=== PATIENT | male | born 1935 | race Caucasian/White ===

== ENCOUNTER 2016-09-08 19:04 | Emergency (ER) | payer MEDICARE, BC ==
[2016-09-08 19:19] VITALS: BP 153/74
--- NOTE | 2016-09-08 19:24 | PHYS DOC ---
Adult General Chief Complaint Chief Complaint: HIP PAIN HPI HPI Patient is a 81 year old male who presents with left hip pain. patient has 1 year history of atraumatic hip pain worse today after getting out of the shower. Denies fall or other trauma. No recent increase in activity. He denies extremity numbness/weakness. Has had back pain in the past but none today. Denies fevers/chills, erythema, warmth, swelling. Has never seen a doctor for this problem before. occasionally takes aleve. Review of Systems Review of Systems Constitutional: Denies fever or chills HENT: Denies nasal congestion or sore throat Respiratory: Denies cough or shortness of breath Cardiovascular: Denies chest pain or edema GI: Denies abdominal pain, nausea, vomiting Musculoskeletal: Denies back pain, reports hip pain Integument: Denies rash Neurologic: Denies headache, focal weakness or sensory changes Physical Exam Physical Exam Constitutional: Well developed, well nourished, no acute distress, non-toxic appearance. HENT: Normocephalic, atraumatic, bilateral external ears normal, oropharynx moist, nose normal. Eyes: conjunctiva normal, no discharge. Cardiovascular: no edema. Lungs & Thorax: no respiratory distress. Abdomen: nondistended. Skin: Warm, dry, no erythema, no rash. Back: No spinal tenderness or step offs. Extremities: left hip no swelling/deformity, no erythema or warmth, no focal bony tenderness with palpation, mild pain with straight leg raise, normal ROM with flexion/extension, internal/external rotation, dp/pt 2+, sensation intact to foot. Neurologic: Alert and oriented X 3 EKG EKG [] Radiology/Procedures Radiology/Procedures XR L hip & pelvis: interpreted by me: no fracture or dislocation[] Course & Med Decision Making Course & Med Decision Making Pertinent Labs and Imaging studies reviewed. (See chart for details) The patient presents with acute on chronic atraumatic hip pain. No evidence of septic joint. No fracture or dislocation on x-ray. Recommend supportive care. Continue naproxen. Could also try Flexeril. Follow-up in the orthopedic clinic within one to 2 weeks. Return to the emergency department for signs of septic joint or otherwise worsening condition. Discharged home in stable condition. [] Dragon Disclaimer Dragon Disclaimer This chart was dictated in whole or in part using Voice Recognition software in a busy, high-work load, and often noisy Emergency Department environment. It may contain unintended and wholly unrecognized errors or omissions. Departure Departure: Impression: Primary Impression: Left hip pain Disposition: HOME, SELF-CARE Condition: STABLE Referrals: LETY PINEDA MD (PCP) [facility] Patient Instructions: Hip Pain Additional Instructions: You were seen in the emergency department today for hip pain. X-ray did not show any fracture or dislocation continue taking naproxen as needed for pain. Try Flexeril which may help with muscle spasm. Follow-up as soon as possible with orthopedic surgeon or with primary care doctor. You might benefit from physical therapy. Return to the emergency department for numbness or weakness in your leg, fever, hot/red/swollen hip, any otherwise worsening condition.. ANGIE OLMOS MD Sep 08, 2016 19:24
[2016-09-08] MEDS ORDERED: CYCL5TAB PO (20:37)
--- NOTE | 2016-09-09 09:09 | RAD ---
EXAM: Frontal pelvis with 2V left hip. HISTORY: Left hip pain. COMPARISON: None. FINDINGS: No fractures are identified. There is mildly decreased femoral head/neck offset anteriorly on the left. Joint spaces are preserved. At the right hip, there is some over coverage of the femoral head with a tiny femoral head osteophyte and mild joint space narrowing. There appear to be brachytherapy implants in the prostate. Degenerative disc disease is at least moderate within the lower lumbar spine. Stool in the right colon suggests constipation. IMPRESSION: 1. Correlate for mild femoroacetabular impingement anteriorly on the left. 2. Mild right hip osteoarthritis. 3. Correlate for constipation.
== END 2016-09-08 20:45 | disposition home or self-care (01) ==
LOC: ER 19:04
DX: G89.29 Other chronic pain (principal); M25.552 Pain in left hip
CPT/HCPCS: 73502; 99284

== ENCOUNTER 2016-09-11 01:50 | Observation (INO) | payer MEDICARE, BC ==
[~2016-09-11] VITALS: Ht 172.7 cm; Wt 90.7 kg
[~2016-09-11 01:50] MED LIST: CYCL5TAB PO
--- NOTE | 2016-09-11 02:00 | PHYS DOC ---
Past History Past Medical History: Cancer, High Cholesterol, Hypertension, Other Past Surgical History: Other Alcohol Use: None Drug Use: None Social History Narrative: lives alone Adult General HPI HPI Patient is a 81 year old male who presents with left hip pain. He was seen in the ED for the pain. No history of trauma or fall. Xray was performed and treated with cyclobenzaprine. He states it has not improved and he cannot get around at home at all. He called 911 due to the pain and inability to ambulate. The pain is centered in the left hip area; no radiation. Worse with ambulation and bending. No fever. No abdominal pain, no nausea or vomiting. No fever. He has a walker that he uses occasionally but since this pain started he has been using it all the time. He is followed by Dr Rodriguez. Review of Systems Review of Systems Constitutional: Denies fever or chills Eyes: Denies change in visual acuity, redness, or eye pain HENT: Denies nasal congestion or sore throat Respiratory: Denies cough or shortness of breath Cardiovascular: No chest pain or palpitations. GI: Denies abdominal pain, nausea, vomiting, bloody stools or diarrhea : Denies dysuria or hematuria Musculoskeletal: left hip pain; denies back pain however. Integument: Denies rash or skin lesions Neurologic: Denies headache, focal weakness or sensory changes Allergies Allergies Allergies Coded Allergies Type Severity Reaction Last Updated Verified morphine Allergy Unknown 09/08/16 Yes Physical Exam Physical Exam Constitutional: Well developed, well nourished, no acute distress, non-toxic appearance. In obvious pain with movement. HENT: Normocephalic, atraumatic, bilateral external ears normal, oropharynx moist, no oral exudates, nose normal. Eyes: PERRLA, EOMI, conjunctiva normal, no discharge. Neck: Normal range of motion, no tenderness, supple, no stridor. Cardiovascular:Heart rate regular rhythm, no murmur Lungs & Thorax: Bilateral breath sounds clear to auscultation Abdomen: Bowel sounds normal, soft, no tenderness, no masses, no pulsatile masses. Skin: Warm, dry, no erythema, no rash. Back: No midline tenderness, no CVA tenderness. Extremities: Pain with any movement to the left hip area. no cyanosis, no clubbing, ROM intact, no edema. Neurologic: Alert and oriented X 3, normal motor function, normal sensory function, no focal deficits noted. Psychologic: Affect normal, judgement normal, mood normal. Current Patient Data Vital Signs Vital Signs Date Time Temp Pulse Resp B/P (MAP) Pulse Ox O2 Delivery O2 Flow Rate FiO2 09/11/16 02:05 98.2 94 20 97 Room Air Lab Results Laboratory Tests Test 09/11/16 02:20 White Blood Count 9.5 x10^3/uL Red Blood Count 4.58 x10^6/uL Hemoglobin 13.8 g/dL Hematocrit 40.3 % Mean Corpuscular Volume 88 fL Mean Corpuscular Hemoglobin 30 pg Mean Corpuscular Hemoglobin Concent 34 g/dL Red Cell Distribution Width 14.3 % Platelet Count 248 x10^3/uL Neutrophils (%) (Auto) 67 % Lymphocytes (%) (Auto) 20 % Monocytes (%) (Auto) 9 % Eosinophils (%) (Auto) 3 % Basophils (%) (Auto) 1 % Neutrophils # (Auto) 6.4 x10^3uL Lymphocytes # (Auto) 1.8 x10^3/uL Monocytes # (Auto) 0.8 x10^3/uL Eosinophils # (Auto) 0.3 x10^3/uL Basophils # (Auto) 0.1 x10^3/uL Sodium Level 143 mmol/L Potassium Level 3.7 mmol/L Chloride Level 107 mmol/L Carbon Dioxide Level 30 mmol/L Anion Gap 6 Blood Urea Nitrogen 13 mg/dL Creatinine 1.0 mg/dL Estimated GFR (Cockcroft-Gault) 71.4 BUN/Creatinine Ratio 13 Glucose Level 112 mg/dL Calcium Level 8.8 mg/dL Total Bilirubin 0.5 mg/dL Aspartate Amino Transf (AST/SGOT) 14 U/L Alanine Aminotransferase (ALT/SGPT) 21 U/L Alkaline Phosphatase 115 U/L Total Protein 7.2 g/dL Albumin 3.5 g/dL Albumin/Globulin Ratio 0.9 Current Medications Medications (Trade) Dose Ordered Sig/Izzy Route PRN Reason Start Time Stop Time Status Last Admin Dose Admin Fentanyl Citrate (Fentanyl 2ml Vial) 50 mcg 1X ONCE IV 09/11/16 02:30 09/11/16 02:31 DC 09/11/16 02:30 Ondansetron HCl (Zofran) 4 mg 1X ONCE IV 09/11/16 02:30 09/11/16 02:31 DC 09/11/16 02:30 Radiology/Procedures Radiology/Procedures CT scan reports noted: [address] [address] IMAGING REPORT Signed PATIENT: MARISSA REDDING ACCOUNT: [id number] : 1935 LOCATION: ER AGE: 81 SEX: M EXAM STATUS: REG ER ORD. PHYSICIAN: ANIKET CRENSHAW MD REASON: left hip pain and left back PROCEDURE: CT LUMBAR SPINE WO CONTRAST PQRS Compliance Statement: One or more of the following individualized dose reduction techniques were utilized for this examination: 1. Automated exposure control 2. Adjustment of the mA and/or kV according to patient size 3. Use of iterative reconstruction technique CT LUMBAR SPINE WO CONTRAST, CT PELVIS WO CONTRAST Clinical Indication: 922169.001 Lower back pain x 4 days, worse tonight, no recent trauma. Comparison: CT abdomen and pelvis December 15, 2009. TECHNIQUE: Helical CT imaging of the pelvis and of the lumbar spine is performed without IV contrast. Findings: The hip joints are intact, mild DJD. No acute pelvic fracture. Sacroiliac joints are symmetric. No diastases of the symphysis pubis. Sacrum alignment is maintained. Diffuse demineralization. Atherosclerotic abdominal aorta. Probable right renal cyst. No acute abnormality of bowel. Urinary bladder is distended, otherwise normal. Fiducials in the prostate. No pelvic free fluid. No acute compression fracture in the lumbar spine. Alignment is maintained. There is vacuum disc phenomenon throughout the lumbar spine. There is disc space narrowing and degenerative endplate spurring most advanced at L2/L3 and L3/L4. Atherosclerotic abdominal aorta, no aneurysm. No hydronephrosis. L3/L4: There is broad-based posterior disc osteophyte complex and facet hypertrophy. Central canal stenosis is probably moderate. There is probably severe bilateral neural foraminal narrowing. L4/L5: Broad-based posterior disc osteophytic complex. Severe ligamentum flavum redundancy. Mild facet hypertrophy. Central canal stenosis is probably severe. Probably severe bilateral neural foraminal narrowing. IMPRESSION: 1. No acute pelvic fracture. No acute compression fracture in the lumbar spine. 2. Degenerative spondylosis of L3/L4 and L4/L5. Electronically signed by: Dejan Quispe MD (09/11/2016 3:19 AM) [facility] DICTATED AND SIGNED BY: DEJAN QUISPE MD DATE: 09/11/16311 CC: ANIKET CRENSHAW MD; LETY RODRIGUEZ MD ~ Course & Med Decision Making Course & Med Decision Making Pertinent Labs and Imaging studies reviewed. (See chart for details) Met patient upon arrival. He cannot even move from the EMS cart to the bed without pain. NVI distally however. Lab ordered; IV Fentanyl and zofran for pain. CT ordered to r/o occult hip fracture, pelvic fracture or lumbar injury with radicular pain. Son is at bedside. CT results back: no fracture but severe central canal stenosis at L4-5 and L3- 4. Spoke with Dr Smith (staffing consultant for Dr Rodriguez) for admission as patient CANNOT AMBULATE at home now due to the pain. Lab reviewed. Dragon Disclaimer Dragon Disclaimer This chart was dictated in whole or in part using Voice Recognition software in a busy, high-work load, and often noisy Emergency Department environment. It may contain unintended and wholly unrecognized errors or omissions. Departure Departure: Impression: Primary Impression: Hip pain, acute Additional Impressions: Left lumbar radiculopathy Intractable pain Disposition: ADMITTED INPATIENT Condition: GOOD Referrals: LETY RODRIGUEZ MD (PCP) Problem Qualifiers Primary Impression: Hip pain, acute Laterality: left Qualified Codes: M25.552 - Pain in left hip ANIKET CRENSHAW MD Sep 11, 2016 02:00
[2016-09-11] MEDS ORDERED: ONDANSETRON PF 4 MG/2 ML VIAL. IV ONE (02:30)
[2016-09-11] MEDS ORDERED: fentaNYL PF 100 MCG/2 ML VIAL IV ONE (02:30)
[2016-09-11 02:38] LABS: BASO # 0.1 x10^3/uL (0.0-0.2); BASO % 1 % (0-3); EOS # 0.3 x10^3/uL (0.0-0.7); EOS % 3 % (0-3); HEMATOCRIT 40.3 % (39.0-53.0); HEMOGLOBIN 13.8 g/dL (13.0-17.5); LYMPH # 1.8 x10^3/uL (1.0-4.8); LYMPH % 20 % (24-48); MEAN CORPUSCULAR HEMOGLOBIN 30 pg (25-35); MEAN CORPUSCULAR HGB CONC 34 g/dL (31-37); MEAN CORPUSCULAR VOLUME 88 fL (79-100); MONO # 0.8 x10^3/uL (0.0-1.1); MONO % 9 % (0-9); NEUT # 6.4 x10^3uL (1.8-7.7); NEUT % 67 % (31-73); PLATELET COUNT 248 x10^3/uL (140-400); RED BLOOD COUNT 4.58 x10^6/uL (4.30-5.70); RED CELL DISTRIBUTION WIDTH 14.3 % (11.5-14.5); WHITE BLOOD COUNT 9.5 x10^3/uL (4.0-11.0)
[2016-09-11 02:45] LABS: ALBUMIN 3.5 g/dL (3.4-5.0); ALBUMIN/GLOBULIN RATIO 0.9 (1.0-1.7); CALCIUM 8.8 mg/dL (8.5-10.1); GFR 71.4; POTASSIUM 3.7 mmol/L (3.5-5.1); TOTAL BILIRUBIN 0.5 mg/dL (0.2-1.0); TOTAL PROTEIN 7.2 g/dL (6.4-8.2)
--- NOTE | 2016-09-11 03:23 | RAD ---
RS Compliance Statement: One or more of the following individualized dose reduction techniques were utilized for this examination: 1. Automated exposure control 2. Adjustment of the mA and/or kV according to patient size 3. Use of iterative reconstruction technique CT LUMBAR SPINE WO CONTRAST, CT PELVIS WO CONTRAST Clinical Indication: 984448.001 Lower back pain x 4 days, worse tonight, no recent trauma. Comparison: CT abdomen and pelvis December 15, 2009. TECHNIQUE: Helical CT imaging of the pelvis and of the lumbar spine is performed without IV contrast. Findings: The hip joints are intact, mild DJD. No acute pelvic fracture. Sacroiliac joints are symmetric. No diastases of the symphysis pubis. Sacrum alignment is maintained. Diffuse demineralization. Atherosclerotic abdominal aorta. Probable right renal cyst. No acute abnormality of bowel. Urinary bladder is distended, otherwise normal. Fiducials in the prostate. No pelvic free fluid. No acute compression fracture in the lumbar spine. Alignment is maintained. There is vacuum disc phenomenon throughout the lumbar spine. There is disc space narrowing and degenerative endplate spurring most advanced at L2/L3 and L3/L4. Atherosclerotic abdominal aorta, no aneurysm. No hydronephrosis. L3/L4: There is broad-based posterior disc osteophyte complex and facet hypertrophy. Central canal stenosis is probably moderate. There is probably severe bilateral neural foraminal narrowing. L4/L5: Broad-based posterior disc osteophytic complex. Severe ligamentum flavum redundancy. Mild facet hypertrophy. Central canal stenosis is probably severe. Probably severe bilateral neural foraminal narrowing. IMPRESSION: 1. No acute pelvic fracture. No acute compression fracture in the lumbar spine. 2. Degenerative spondylosis of L3/L4 and L4/L5. Electronically signed by: Dejan Quispe MD (09/11/2016 3:19 AM) [facility]
[2016-09-11] MEDS ORDERED: fentaNYL PF 100 MCG/2 ML VIAL IV PRN (03:45)
[2016-09-11] MEDS ORDERED: ACETAMINOPHEN 325 MG TABLET PO PRN (03:45)
[2016-09-11] MEDS ORDERED: ONDANSETRON PF 4 MG/2 ML VIAL. IV PRN (03:45)
[2016-09-11 04:10] VITALS: BP 154/75
[2016-09-11] MEDS ORDERED: FLUT16SP21 NS (05:12)
[2016-09-11] MEDS ORDERED: TRAM50TA PO (05:12)
[2016-09-11] MEDS ORDERED: ATOR20TA58 PO (05:13)
[2016-09-11] MEDS ORDERED: OMEP40CA5 PO (05:14)
[2016-09-11] MEDS ORDERED: traMADol 50 MG TABLET PO PRN (05:15)
[2016-09-11] MEDS ORDERED: HYDR25TA9 PO (05:15)
[2016-09-11] MEDS ORDERED: CLOP75TA PO (05:16)
[2016-09-11] MEDS ORDERED: POLY255P PO (05:17)
[2016-09-11] MEDS ORDERED: ZOLP5TAB5 PO (05:17)
--- NOTE | 2016-09-11 05:20 | NUR ---
The patient, MARISSA REDDING, 81 y/o, M admitted by PARIS TAFOYA MD, Patient and family was given written information regarding hospital policies, unit procedures and contact persons. Patient's admitting DX is intractable pain. Patient states that his left hip and all the way up his left side has hurt for over a week. He came to the ER the other day and they prescribed him flexeril but it isn't working. Patient states he is having a very hard time getting around his house due to the pain. Patient states that when he is just laying down it doesn't hurt at all but when he moves it hurts very badly. He uses a walker at home and he states that he has had to use it more often due to the pain. Patient denies any injury. Call light within reach. Will continue to monitor. Valuables were checked and left with patient.
--- NOTE | 2016-09-11 05:38 | NUR ---
Nursing note: Patient was able to walk to the bathroom with a walker and gate belt with supervision only. He states that when the pain comes it is like a spasm, but he doesn't have it all the time. Patient instructed to always ask for help to the bathroom. Will continue to monitor.
[2016-09-11] MEDS ORDERED: PANTOPRAZOLE 40 MG TABLET. PO SCH (07:30)
[2016-09-11 08:30] VITALS: BP 147/71
[2016-09-11] MEDS ORDERED: hydroCHLOROthiazide 25 MG TABLET PO SCH (09:00)
[2016-09-11] MEDS ORDERED: POLYETHYLENE GLYCOL 3350 17 GM PACKET. PO PRN (09:00)
[2016-09-11] MEDS ORDERED: FLUTICASONE 50MCG/NASAL SPRAY 16GM BOTTLE. NS SCH (09:00)
[2016-09-11] MEDS ORDERED: CLOPIDOGREL BISULFATE 75 MG TABLET PO SCH (09:00)
[2016-09-11 11:10] VITALS: BP 149/84
[2016-09-11 15:15] VITALS: BP 162/62
--- NOTE | 2016-09-11 17:41 | NUR ---
Discharge Note: MARISSA REDDING Discharge instructions and discharge home medications reviewed with [facility] RN and a copy given. All questions have been answered and understanding verbalized. The following instructions and handouts were given: MEDICATIONS, LABS, IMAGING, DIET, ACTIVITY, AND FOLLOW UP INSTRUCTIONS Discontinued lines and drains: PERIPHERAL IV LEFT INTACT FOR USE AT [facility]. [facility] via EMS.
--- NOTE | 2016-09-11 20:03 | SSS ---
ADMIT DATE: 09/11/2016 HISTORY OF PRESENT ILLNESS: The patient is an 81-year-old male patient who came to the Emergency Room complaining of pain in the left hip. He apparently was seen for the same problem on 09/08/2016 with no history of trauma or fall. X-ray was performed, then he was given cyclobenzaprine. The patient stated that has not improved and he cannot get around at home at all. He in fact called 911 due to the pain and inability to ambulate. The pain is centered in the left hip area. No radiation. Worse with ambulation and bending. No fever, no abdominal pain, no nausea, no vomiting. He stated that he uses a walker occasionally, but since this pain started he has been using it all the time. According to him, the pain has been on and off since 12/2015. On questioning him further, the pain is mostly in the left lumbar area and radiating down. PAST MEDICAL HISTORY: Significant for hypertension and hyperlipidemia. He has also prostate cancer and colon cancer. PAST SURGICAL HISTORY: Significant for cholecystectomy, partial colectomy. His prostate cancer was treated with radiation seeds and 42 sessions of radiotherapy and then was treated with Lupron every 3 months for 3 years. The last injection was about 5 years ago. He was followed by Dr. Gao and also the Oncology Team at [facility]. He had tonsillectomy and colonoscopy. ALLERGIES: He is allergic to MORPHINE. MEDICATIONS: It is noteworthy that he has also had bilateral footdrop and has peripheral vascular disease for which he is on Plavix, although he has never had any arteriograms, angioplasty or bypass graft. He is currently on following medications: Atorvastatin calcium 20 mg at bedtime, Plavix 75 mg once a day, cyclobenzaprine 5 mg at bedtime, Flonase 1 spray to each nostril twice a day, hydrochlorothiazide 25 mg once a day, omeprazole 40 mg once a day, polyethylene glycol 17 grams daily, tramadol 50 mg every 6 hours and Ambien 5 mg at bedtime. FAMILY HISTORY: He has 1 older brother of complication of diabetes, 1 older sister of motor vehicle accident. His younger sister also was , but he does not know the cause of . His father at the age of 84 and mother at age of 33 because of heart problem. SOCIAL HISTORY: He is , lives alone with his dog. He has 2 sons. He does not smoke or drink alcohol. He worked in the [employer] office for 30 years. He is a [employer] . REVIEW OF SYSTEMS: The patient denied any blurring of vision, cataract, glaucoma or macular degeneration. Denied any earache, tinnitus or sensorineural deafness. Denied any nosebleeds, stuffy nose or postnasal drip. Denied any sore throat, sore tongue, toothache, hoarseness of voice or difficulty swallowing. Denied any nausea, vomiting, diarrhea or constipation. Denied any hematemesis, melena or hematochezia. Denied any dysuria, frequency or hematuria. Did complain of nocturia 3 times per night. Denied any chest pain, shortness of breath, orthopnea, or paroxysmal nocturnal dyspnea. Denied any cough, phlegm or hemoptysis. Denied any chills, rigors or fever. Denied any dizziness, lightheadedness, or vertigo. Did complain of pain and difficulty walking. PHYSICAL EXAMINATION: GENERAL: On examining him, he looked well and was clearly in no apparent distress, slightly pale, but no jaundice, cyanosis, or thyromegaly. No jugular venous distention. No limb edema. VITAL SIGNS: His heart rate was 84, blood pressure was 157/87, temperature was 97.7, respiratory rate was 20, and oxygen saturation was 96%. HEAD, EYES, EARS, NOSE, AND THROAT: Shows normocephalic, atraumatic. NECK: Supple. HEART: Showed normal first and second heart sounds with no gallop, rub or murmur. CHEST: Clear to auscultation. No crepitation or rhonchi. ABDOMEN: Distended, soft, nontender. No guarding or rigidity. No organomegaly. Hernial orifices intact. Bowel sounds normal. NEUROLOGIC: He was awake, alert, responding appropriately. Cranial nerves intact. EXTREMITIES: He moves extremities without difficulty. He has bilateral footdrop and has difficulty walking because the pain in his left lumbar area radiates down. LABORATORY DATA: While in the Emergency Room, he had lab work done, which showed a white cell count of 9500, hemoglobin 14, hematocrit 40, MCV 88 and platelet count 248,000 with normal manual differential. His serum sodium was 143, potassium 3.7, chloride 107, bicarbonate 30, anion gap of 6, BUN 13, creatinine 1, estimated GFR was 71 mL per minute. His glucose 112, calcium was 8.8. Total bilirubin 0.5. AST, ALT, alkaline phosphatase were normal. Total protein was 7.2, albumin was 3.5. He has had a CT scan of the pelvis, which showed the hip joints are intact. Mild degenerative joint disease. No acute pelvic fracture. Sacroiliac joints are symmetrical. No diastasis of symphysis pubis or sacrum. Alignment is maintained. Diffuse demineralization. He has atherosclerotic abdominal aorta, probable right renal cyst. No acute abnormality of the bowel. Urinary bladder is distended; otherwise, normal. in the prostate. No pelvic free fluid. No acute compression fracture in the lumbar spine. Alignment is maintained. There is vacuum disk phenomenon throughout the lumbar spine. There is disk space narrowing and degenerative endplate spurring most advanced at L2-L3 and L3-L4. He has arteriosclerotic abdominal aorta. No aneurysm. No hydronephrosis. At L3-L4, there is broad-based posterior disk osteophyte complex and facet hypertrophy, central canal stenosis, probably moderate. There is probably severe bilateral neural canal and neural foraminal narrowing. At L4-L5, broad-based posterior disk osteophytic complex, severe ligamentum flavum redundancy, mild facet hypertrophy, central canal stenosis, probably severe, and probably severe bilateral neural foraminal narrowing. IMPRESSION: The patient has no acute pelvic fracture. No acute compression fracture in the lumbar spine; however, has degenerative spondylolysis at L3-L4 and L4-L5. PLAN: Given the fact that he has this persistent pain that is interfering with his mobility and independence and that the pain has been worsening since 12/2015 and he has bilateral footdrop, my plan is to transfer him to [facility]. We will arrange for him to have an MRI of the lumbosacral spine and also consulting neurosurgeon to see if any surgical intervention needs to be done. I will hold his Plavix. PARIS TAFOYA MD DR: INÉS/riri JOB#: [id number] / [id number]
[2016-09-11] MEDS ORDERED: CYCLOBENZAPRINE 10 MG TABLET. PO SCH (21:00)
[2016-09-11] MEDS ORDERED: ATORVASTATIN CALCIUM 20 MG TABLET PO SCH (21:00)
== END 2016-09-11 17:45 | disposition short-term general hospital (02) ==
LOC: ER 01:50 → 1 SOUTH 03:35
PROVIDERS: ADMIT Internal Medicine; ATTEND Internal Medicine
DX: M47.26 Other spondylosis with radiculopathy, lumbar region (principal); I10 Essential (primary) hypertension; E78.00 Pure hypercholesterolemia, unspecified; E78.5 Hyperlipidemia, unspecified; Z85.038 Personal history of other malignant neoplasm of large intestine; Z85.46 Personal history of malignant neoplasm of prostate; Z92.3 Personal history of irradiation; Z83.3 Family history of diabetes mellitus
CPT/HCPCS: 36415; 72131; 72192; 80053; 85027; 96374; 96375; 96376; 97162; 99285; G0378; J2405; J3010; G0379

== ENCOUNTER 2016-10-15 13:56 | Emergency (ER) | payer MEDICARE, BC ==
[~2016-10-15] VITALS: Ht 172.7 cm; Wt 88.5 kg
[~2016-10-15 13:56] MED LIST changes: +ATOR20TA58 PO; +CLOP75TA PO; +FLUT16SP21 NS; +HYDR25TA9 PO; +OMEP40CA5 PO; +POLY255P PO; +TRAM50TA PO; +ZOLP5TAB5 PO
--- NOTE | 2016-10-15 14:59 | PHYS DOC ---
Past History Past Medical History: Cancer, High Cholesterol, Hypertension, Other Past Surgical History: Other Alcohol Use: None Drug Use: None Adult General Chief Complaint Chief Complaint: INSECT BITE HPI HPI 81-year-old male 2 days status post stenting proximal aspect of left index finger dorsum. Mild soreness and swelling immediately after. By patient's description that night he became much more swollen with mild warmth. His tetanus is not up-to-date. Swelling has persisted. He has not elevated at all or applied any ice and patient has not taken Benadryl or NSAIDs. He has no hives or diffuse rash. Findings are confined to the arm below the elbow only. No voice changes swallowing difficulty or breathing problems. Fevers chills sweats or shaking chills. Other than symptoms below the elbow patient is asymptomatic Review of Systems Review of Systems Constitutional: Denies fever or chills [] Eyes: Denies change in visual acuity, redness, or eye pain [] HENT: Denies nasal congestion or sore throat [] Respiratory: Denies cough or shortness of breath [] Cardiovascular: No additional information not addressed in HPI [] GI: Denies abdominal pain, nausea, vomiting, bloody stools or diarrhea [] : Denies dysuria or hematuria [] Musculoskeletal: Denies back pain or joint pain [] Integument: Denies rash or skin lesions [] Neurologic: Denies headache, focal weakness or sensory changes [] Endocrine: Denies polyuria or polydipsia [] Allergies Allergies Allergies Coded Allergies Type Severity Reaction Last Updated Verified morphine Allergy Unknown 09/08/16 Yes Physical Exam Physical Exam Well-appearing male appears much younger than his stated age as he is very vigorous and able bodied, soft tissue swelling and edema dorsum of left index finger as well as dorsum of left hand and forearm. Upper arm not involved. No significant warmth. Mild erythema however this states approximately. Small amount of ecchymosis at the bite site itself but no guillaume necrosis. No flexor T no synovitis. No fluctuance or crepitus. Compartments soft Constitutional: Well developed, well nourished, no acute distress, non-toxic appearance. [] HENT: Normocephalic, atraumatic, bilateral external ears normal, oropharynx moist, no oral exudates, nose normal. [] Eyes: PERRLA, EOMI, conjunctiva normal, no discharge. [] Neck: Normal range of motion, no tenderness, supple, no stridor. [] Cardiovascular:Heart rate regular rhythm, no murmur [] Lungs & Thorax: Bilateral breath sounds clear to auscultation [] Abdomen: Bowel sounds normal, soft, no tenderness, no masses, no pulsatile masses. [] Skin: Warm, dry, no erythema, no rash. [] Back: No tenderness, no CVA tenderness. [] Extremities: No tenderness, no cyanosis, no clubbing, ROM intact, [] Neurologic: Alert and oriented X 3, no focal deficits noted. [] Psychologic: Affect normal, judgement normal, mood normal. [] Current Patient Data Vital Signs Vital Signs Date Time Temp Pulse Resp B/P (MAP) Pulse Ox O2 Delivery O2 Flow Rate FiO2 10/15/16 14:19 98.5 87 22 97 Room Air EKG EKG [] Radiology/Procedures Radiology/Procedures [] Course & Med Decision Making Course & Med Decision Making Pertinent Labs and Imaging studies reviewed. (See chart for details) [] Dragon Disclaimer Dragon Disclaimer This chart was dictated in whole or in part using Voice Recognition software in a busy, high-work load, and often noisy Emergency Department environment. It may contain unintended and wholly unrecognized errors or omissions. Departure Departure: Impression: Primary Impression: Local reaction to insect sting Additional Impression: Edema of upper extremity Disposition: 01 HOME, SELF-CARE Condition: STABLE Referrals: CHARISMA MOORE MD (PCP) Patient Instructions: Bee, Wasp, or Hornet Sting Additional Instructions: Your wasp sting of your left hand has caused a local reaction of swelling and discomfort in your left hand and forearm. Her tetanus shot has been updated. This includes pertussis whooping cough vaccination. As we discussed there is no clinical difference between the signs of inflammation in the signs of infection so days after a your wasp envenomation, it is impossible to definitively determine that there is not an early skin infection associated with your swelling redness and discomfort. Based on this as we discussed I have written your prescription for Keflex this is an antibiotic. Be sure to finish it as prescribed. Take ibuprofen 800 mg every 6 hours elevate your arm whenever possible and apply ice if you find it helps your comfort level. Follow-up with your doctor tomorrow and return immediately for new severe worsening symptoms specifically for sitting pain in your hand or severe tightness in the forearm causing progressive pain or for fevers. Scripts Cephalexin (KEFLEX) 500 Mg Capsule 500 MG PO QID for 10 Days, #40 CAP Prov: SHERRY LUZ MD 10/15/16 Problem Qualifiers SHERRY LUZ MD Oct 15, 2016 14:59
[2016-10-15] MEDS ORDERED: DIPHTH,PERTUSS(ACELL),TET TOX 0.5 ML DISP.SYRIN. VAX IM ONE (15:00)
[2016-10-15] MEDS ORDERED: DEXAMETHASONE SOD PHOS 10 MG/ML VIAL IV ONE (15:00)
[2016-10-15] MEDS ORDERED: CEPHALEXIN 250 MG CAPSULE PO ONE (15:00)
[2016-10-15] MEDS ORDERED: KETOROLAC 60 MG/2 ML VIAL. IM ONE (15:15)
[2016-10-15] MEDS ORDERED: CEPH-264 PO (16:34)
[2016-10-15 16:44] VITALS: BP 148/78
== END 2016-10-15 16:47 | disposition home or self-care (01) ==
LOC: ER 13:56
DX: L08.89 Other specified local infections of the skin and subcutaneous tissue (principal); R60.1 Generalized edema; I10 Essential (primary) hypertension; E78.00 Pure hypercholesterolemia, unspecified; Z88.5 Allergy status to narcotic agent; W57.XXXA Bitten or stung by nonvenomous insect and other nonvenomous arthropods, initial encounter; Y93.89 Activity, other specified; Y99.8 Other external cause status; Y92.89 Other specified places as the place of occurrence of the external cause
CPT/HCPCS: 90471; 90715; 96372; 96374; 99284; J1100; J1885

== ENCOUNTER → 2017-01-06 | Outpatient (CLI) | payer MEDICARE, BC ==
[~2017-01-06] MED LIST changes: +BUPIVACAINE MPF 0.25% 10 ML VIAL. ONE; +CEPH-264 PO; +DEXAMETHASONE SOD PHOS 4 MG/ML VIAL ONE; +IOHEXOL 300 MG/ML 50 ML VIAL. ONE; +LIDOCAINE 1% PF 30 ML VIAL. ONE
== END ==
LOC: SURG 11:01
PROVIDERS: ATTEND Anesthesiology Pain Medicine
DX: M51.16 Intervertebral disc disorders with radiculopathy, lumbar region (principal); I10 Essential (primary) hypertension; E78.5 Hyperlipidemia, unspecified; M19.90 Unspecified osteoarthritis, unspecified site; E78.00 Pure hypercholesterolemia, unspecified; Z88.5 Allergy status to narcotic agent; Z79.899 Other long term (current) drug therapy; Z98.890 Other specified postprocedural states; Z85.038 Personal history of other malignant neoplasm of large intestine; Z83.3 Family history of diabetes mellitus
CPT/HCPCS: 64483; 64484; J1100; J2001; J3490; Q9967

== ENCOUNTER → 2017-02-03 | Outpatient (CLI) | payer MEDICARE, BC ==
[~2017-02-03] MED LIST changes: +0.9 % SODIUM CHLORIDE 10 ML VIAL ONE; -BUPIVACAINE MPF 0.25% 10 ML VIAL. ONE; -DEXAMETHASONE SOD PHOS 4 MG/ML VIAL ONE; +methylPREDNISolone ACETATE 80 MG/ML VIAL. ONE
== END | disposition home or self-care (01) ==
LOC: SURG 08:57
PROVIDERS: ATTEND Anesthesiology Pain Medicine
DX: M54.16 Radiculopathy, lumbar region (principal); F41.9 Anxiety disorder, unspecified; K21.9 Gastro-esophageal reflux disease without esophagitis
CPT/HCPCS: 62323; J1040; J2001; Q9967

== ENCOUNTER → 2017-03-31 | Outpatient (CLI) | payer MEDICARE, BC | END | disposition home or self-care (01) | LOC: SURG 11:42 | PROVIDERS: ATTEND Anesthesiology Pain Medicine | DX: M54.16 Radiculopathy, lumbar region (principal); M19.90 Unspecified osteoarthritis, unspecified site; E78.00 Pure hypercholesterolemia, unspecified; K21.9 Gastro-esophageal reflux disease without esophagitis; E66.9 Obesity, unspecified; Z88.6 Allergy status to analgesic agent; Z88.2 Allergy status to sulfonamides | CPT/HCPCS: 62323; 99213; J1040; J2001; Q9967 ==

== ENCOUNTER → 2017-04-28 | Outpatient (CLI) | payer MEDICARE, BC ==
[~2017-04-28] MED LIST changes: -0.9 % SODIUM CHLORIDE 10 ML VIAL ONE; +BUPIVACAINE MPF 0.5% 30 ML VIAL. ONE; -IOHEXOL 300 MG/ML 50 ML VIAL. ONE; -methylPREDNISolone ACETATE 80 MG/ML VIAL. ONE
== END | disposition home or self-care (01) ==
LOC: SURG 10:30
PROVIDERS: ATTEND Anesthesiology Pain Medicine
DX: M47.816 Spondylosis without myelopathy or radiculopathy, lumbar region (principal); M19.90 Unspecified osteoarthritis, unspecified site; Z88.2 Allergy status to sulfonamides; Z88.8 Allergy status to other drugs, medicaments and biological substances; Z79.899 Other long term (current) drug therapy
CPT/HCPCS: 64493; 64494; J2001; J3490

== ENCOUNTER → 2017-06-02 | Outpatient (CLI) | payer MEDICARE, BC | END | disposition home or self-care (01) | LOC: SURG 10:44 | PROVIDERS: ATTEND Anesthesiology Pain Medicine | DX: M47.816 Spondylosis without myelopathy or radiculopathy, lumbar region (principal); Z88.2 Allergy status to sulfonamides; Z88.6 Allergy status to analgesic agent; Z88.8 Allergy status to other drugs, medicaments and biological substances; M19.90 Unspecified osteoarthritis, unspecified site | CPT/HCPCS: 64493; 64494; J2001; J3490; 64495 ==

== ENCOUNTER → 2018-08-18 | Outpatient (CLI) | payer MEDICARE, BC ==
[~2018-08-18] MED LIST changes: +0.9 % SODIUM CHLORIDE 10 ML VIAL ONE; -BUPIVACAINE MPF 0.5% 30 ML VIAL. ONE; +HYDR-2145 PO; -HYDR25TA9 PO; +IOHEXOL 300 MG/ML 50 ML VIAL. ONE; -POLY255P PO; +POLY255P11 PO; +methylPREDNISolone ACETATE 80 MG/ML VIAL. ONE
== END ==
LOC: SURG 09:29
PROVIDERS: ATTEND Anesthesiology Pain Medicine
DX: M54.16 Radiculopathy, lumbar region (principal); Z88.6 Allergy status to analgesic agent; Z88.1 Allergy status to other antibiotic agents; Z88.5 Allergy status to narcotic agent
CPT/HCPCS: 62323; J1040; J2001; Q9967

== ENCOUNTER → 2018-10-13 | Outpatient (CLI) | payer MEDICARE, BC ==
[~2018-10-13] MED LIST changes: +GABA-586 PO; +HYDR-2155 PO; +NAPR220C4 PO
--- NOTE | 2018-10-13 10:13 | NUR ---
PT HASN'T TAKEN ANY ABX FOR OVER FOUR WEEKS
[2018-10-13 10:54] VITALS: BP 151/79
== END | disposition home or self-care (01) ==
LOC: SURG 09:40
PROVIDERS: ATTEND Anesthesiology Pain Medicine
DX: M54.16 Radiculopathy, lumbar region (principal); K21.9 Gastro-esophageal reflux disease without esophagitis; E78.00 Pure hypercholesterolemia, unspecified; Z79.899 Other long term (current) drug therapy; Z98.890 Other specified postprocedural states
CPT/HCPCS: 62323; J1040; J2001; Q9967; 72275

== ENCOUNTER → 2018-12-21 | Outpatient (CLI) | payer MEDICARE, BC ==
[~2018-12-21] MED LIST changes: -0.9 % SODIUM CHLORIDE 10 ML VIAL ONE; -IOHEXOL 300 MG/ML 50 ML VIAL. ONE; -LIDOCAINE 1% PF 30 ML VIAL. ONE; +OMEP40CA45 PO; -OMEP40CA5 PO; -methylPREDNISolone ACETATE 80 MG/ML VIAL. ONE
[2018-12-21 10:09] VITALS: BP 172/90
== END | disposition home or self-care (01) ==
LOC: SURG 09:47
PROVIDERS: ATTEND Anesthesiology Pain Medicine
DX: M47.816 Spondylosis without myelopathy or radiculopathy, lumbar region (principal); G89.4 Chronic pain syndrome; Z79.84 Long term (current) use of oral hypoglycemic drugs; Z79.891 Long term (current) use of opiate analgesic; Z85.038 Personal history of other malignant neoplasm of large intestine
CPT/HCPCS: 99213

== ENCOUNTER → 2019-01-24 | Outpatient (CLI) | payer MEDICARE, BC ==
[~2019-01-24] MED LIST changes: +0.9 % SODIUM CHLORIDE 10 ML VIAL ONE; +IOHEXOL 300 MG/ML 50 ML VIAL. ONE; +LIDOCAINE 1% PF 30 ML VIAL. ONE; +methylPREDNISolone ACETATE 80 MG/ML VIAL. ONE
[2019-01-24 10:50] VITALS: BP 101/69
== END ==
LOC: SURG 09:40
PROVIDERS: ATTEND Anesthesiology Pain Medicine
DX: M54.16 Radiculopathy, lumbar region (principal)
CPT/HCPCS: 62323; J1040; J2001; Q9967

== ENCOUNTER 2019-04-14 17:11 | Emergency (ER) | payer MEDICARE, BC ==
[~2019-04-14] VITALS: Ht 172.7 cm; Wt 95.5 kg
[~2019-04-14 17:11] MED LIST changes: -0.9 % SODIUM CHLORIDE 10 ML VIAL ONE; -IOHEXOL 300 MG/ML 50 ML VIAL. ONE; -LIDOCAINE 1% PF 30 ML VIAL. ONE; -methylPREDNISolone ACETATE 80 MG/ML VIAL. ONE
[2019-04-14 17:34] VITALS: BP 149/82
[2019-04-14] MEDS ORDERED: methylPREDNISolone SOD SUCC PF 125 MG/2 ML VIAL. IM ONE (17:45)
[2019-04-14] MEDS ORDERED: diphenhydrAMINE 50 MG/ML VIAL IM ONE (17:45)
[2019-04-14] MEDS ORDERED: ONDANSETRON ODT 4 MG TAB.RAPDIS ONE (17:59)
--- NOTE | 2019-04-14 18:09 | PHYS DOC ---
Past History Past Medical History: Cancer, High Cholesterol, Hypertension, Other Past Surgical History: Other Alcohol Use: None Drug Use: None Adult General Chief Complaint Chief Complaint: ALLERGIC REACTION HPI HPI Patient is a 84-year-old male who presents with report of possible allergic reaction to new medication. Patient states that his doctor had just changed him from Flomax to torsemide to help get some of the fluid off of his legs. Patient states that after taking his first pill, he noticed swelling around his anterior neck and chin area as well as swelling on his tongue and some ulceration that developed today. He rates the pain in his tongue is mild. He denies any shortness of breath. He states that some of the swelling has early gone down.[] Review of Systems Review of Systems Constitutional: Denies fever or chills [] HENT: Positive tongue swelling and ulceration[] Respiratory: Denies cough or shortness of breath [] Cardiovascular: No additional information not addressed in HPI [] Integument: Denies rash or skin lesions [] Neurologic: Denies headache, focal weakness or sensory changes [] Current Medications Current Medications Current Medications Medications (Trade) Dose Ordered Sig/Izzy Start Time Stop Time Status Last Admin Dose Admin Diphenhydramine HCl (Benadryl) 25 mg 1X ONCE 04/14/19 17:45 04/14/19 17:46 UNV Methylprednisolone Sodium Succinate (SOLU-Medrol 125MG VIAL) 125 mg 1X ONCE 04/14/19 17:45 04/14/19 17:46 UNV Ondansetron HCl (Zofran Odt) 4 mg STK-MED ONCE 04/14/19 17:59 04/14/19 17:59 DC Allergies Allergies Allergies Coded Allergies Type Severity Reaction Last Updated Verified Sulfa (Sulfonamide Antibiotics) Allergy Intermediate Swelling 01/24/19 Yes morphine Allergy Unknown 01/24/19 Yes Physical Exam Physical Exam Constitutional: Well developed, well nourished, no acute distress, non-toxic appearance. [] HENT: Normocephalic, atraumatic, bilateral external ears normal, oropharynx moist, with what appears to be mild tongue swelling and ulceration along the left lateral aspect of the tongue. [] Eyes: PERRLA, EOMI, conjunctiva normal, no discharge. [] Neck: Normal range of motion, no tenderness, supple, with mild soft tissue sw elling anteriorly. [] Cardiovascular: Regular rate and rhythm[] Lungs & Thorax: Bilateral breath sounds clear to auscultation [] Skin: Warm, dry, no erythema, no rash. [] Current Patient Data Vital Signs Vital Signs Date Time Temp Pulse Resp B/P (MAP) Pulse Ox O2 Delivery O2 Flow Rate FiO2 04/14/19 17:34 94 18 149/82 (104) 97 EKG EKG [] Radiology/Procedures Radiology/Procedures [] Course & Med Decision Making Course & Med Decision Making Pertinent Labs and Imaging studies reviewed. (See chart for details) [] Dragon Disclaimer Dragon Disclaimer This electronic medical record was generated, in whole or in part, using a voice recognition dictation system. Departure Departure: Impression: Primary Impression: Medication reaction Disposition: HOME, SELF-CARE Condition: STABLE Referrals: CHARISMA MOORE MD (PCP) Patient Instructions: Drug Allergy Additional Instructions: Hold torsemide for now until you've follow-up with your primary care provider for further advice. Problem Qualifiers Primary Impression: Medication reaction Encounter type: initial encounter Qualified Codes: T50.905A - Adverse effect of unspecified drugs, medicaments and biological substances, initial encounter SUNITA GUERRERO Jr. DO Apr 14, 2019 18:09
== END 2019-04-14 18:11 | disposition home or self-care (01) ==
LOC: ER 17:11
DX: R22.1 Localized swelling, mass and lump, neck (principal); K14.6 Glossodynia; T50.1X5A Adverse effect of loop [high-ceiling] diuretics, initial encounter; E78.00 Pure hypercholesterolemia, unspecified; I10 Essential (primary) hypertension; Z88.2 Allergy status to sulfonamides; Z88.5 Allergy status to narcotic agent; Y92.89 Other specified places as the place of occurrence of the external cause
CPT/HCPCS: 99281

== ENCOUNTER → 2019-12-05 | Outpatient (CLI) | payer MEDICARE, BC ==
[~2019-12-05] MED LIST changes: +BUPIVACAINE MPF 0.25% 10 ML VIAL. ONE; +LIDOCAINE 1% PF 30 ML VIAL. ONE
[2019-12-05 12:24] VITALS: BP 147/81
== END | disposition home or self-care (01) ==
LOC: SURG 11:27
PROVIDERS: ATTEND Anesthesiology
DX: M47.816 Spondylosis without myelopathy or radiculopathy, lumbar region (principal); M48.061 Spinal stenosis, lumbar region without neurogenic claudication; K21.9 Gastro-esophageal reflux disease without esophagitis; F32.9 Major depressive disorder, single episode, unspecified; C22.0 Liver cell carcinoma; Z98.890 Other specified postprocedural states; Z88.6 Allergy status to analgesic agent; Z79.899 Other long term (current) drug therapy; Z88.1 Allergy status to other antibiotic agents; Z88.8 Allergy status to other drugs, medicaments and biological substances
CPT/HCPCS: 64493; 64494; J2001; J3490

== ENCOUNTER → 2019-12-19 | Outpatient (CLI) | payer MEDICARE, BC ==
[2019-12-19 11:17] VITALS: BP 152/87
== END | disposition home or self-care (01) ==
LOC: SURG 10:05
PROVIDERS: ATTEND Anesthesiology
DX: M47.816 Spondylosis without myelopathy or radiculopathy, lumbar region (principal); Z98.890 Other specified postprocedural states; Z88.1 Allergy status to other antibiotic agents; Z88.6 Allergy status to analgesic agent; Z88.8 Allergy status to other drugs, medicaments and biological substances
CPT/HCPCS: 64493; 64494; J2001; J3490

== ENCOUNTER → 2020-01-02 | Outpatient (CLI) | payer MEDICARE, BC ==
[~2020-01-02] MED LIST changes: -BUPIVACAINE MPF 0.25% 10 ML VIAL. ONE; -LIDOCAINE 1% PF 30 ML VIAL. ONE
[2020-01-02 14:45] VITALS: BP 156/95
== END ==
LOC: SURG 14:35
PROVIDERS: ATTEND Anesthesiology
DX: M47.26 Other spondylosis with radiculopathy, lumbar region (principal); M48.061 Spinal stenosis, lumbar region without neurogenic claudication; F32.9 Major depressive disorder, single episode, unspecified; K21.9 Gastro-esophageal reflux disease without esophagitis; Z79.899 Other long term (current) drug therapy; Z88.2 Allergy status to sulfonamides; Z88.6 Allergy status to analgesic agent; Z88.1 Allergy status to other antibiotic agents; Z88.5 Allergy status to narcotic agent; Z88.8 Allergy status to other drugs, medicaments and biological substances; I10 Essential (primary) hypertension; E78.00 Pure hypercholesterolemia, unspecified; Z98.890 Other specified postprocedural states; Z79.84 Long term (current) use of oral hypoglycemic drugs; Z83.3 Family history of diabetes mellitus; F41.9 Anxiety disorder, unspecified; M19.90 Unspecified osteoarthritis, unspecified site; Z85.46 Personal history of malignant neoplasm of prostate; Z85.038 Personal history of other malignant neoplasm of large intestine; Z92.3 Personal history of irradiation; E66.9 Obesity, unspecified
CPT/HCPCS: 99213; G0463

== ENCOUNTER → 2020-01-30 | Day surgery (SDC) | payer MEDICARE, BC ==
[~2020-01-30] MED LIST changes: +BUPIVACAINE MPF 0.25% 10 ML VIAL. ONE; +DEXAMETHASONE SOD PHOS 4 MG/ML VIAL. ONE; +LIDOCAINE 1% PF 30 ML VIAL. ONE; +MIDAZOLAM HCL PF 2 MG/2 ML VIAL. ONE
[2020-01-30 10:22] VITALS: BP 142/77
== END | disposition home or self-care (01) ==
LOC: SURG 08:17
PROVIDERS: ATTEND Anesthesiology
DX: M47.816 Spondylosis without myelopathy or radiculopathy, lumbar region (principal); K21.9 Gastro-esophageal reflux disease without esophagitis; F32.9 Major depressive disorder, single episode, unspecified; M48.061 Spinal stenosis, lumbar region without neurogenic claudication; M54.16 Radiculopathy, lumbar region; I10 Essential (primary) hypertension; E78.5 Hyperlipidemia, unspecified; F41.9 Anxiety disorder, unspecified; E66.9 Obesity, unspecified; M19.90 Unspecified osteoarthritis, unspecified site; Z85.038 Personal history of other malignant neoplasm of large intestine; Z98.890 Other specified postprocedural states; Z79.899 Other long term (current) drug therapy; Z88.2 Allergy status to sulfonamides; Z88.8 Allergy status to other drugs, medicaments and biological substances; Z88.5 Allergy status to narcotic agent; Z88.6 Allergy status to analgesic agent; Z88.1 Allergy status to other antibiotic agents; Z79.84 Long term (current) use of oral hypoglycemic drugs; Z79.891 Long term (current) use of opiate analgesic; Z83.3 Family history of diabetes mellitus; Z85.46 Personal history of malignant neoplasm of prostate
CPT/HCPCS: 64635; 64636; 99152; 99153; J1100; J2001; J2250; J3010; J3490; 62321

== ENCOUNTER → 2020-02-13 | Day surgery (SDC) | payer MEDICARE, BC ==
[~2020-02-13] MED LIST changes: +BUPIVACAINE MPF 0.25% 10 ML VIAL. IJ ONE; +DEXAMETHASONE SOD PHOS 4 MG/ML VIAL. INT ART ONE; +LIDOCAINE 1% PF 30 ML VIAL. INJ ONE; +MIDAZOLAM HCL PF 2 MG/2 ML VIAL. IVP ONE; -OMEP40CA45 PO; +OMEP40CA7 PO
[2020-02-13 09:41] VITALS: BP 150/80
== END | disposition home or self-care (01) ==
LOC: SURG 07:36
PROVIDERS: ATTEND Anesthesiology
DX: M47.816 Spondylosis without myelopathy or radiculopathy, lumbar region (principal); F32.9 Major depressive disorder, single episode, unspecified; F41.9 Anxiety disorder, unspecified; I10 Essential (primary) hypertension; E78.5 Hyperlipidemia, unspecified; K21.9 Gastro-esophageal reflux disease without esophagitis; M19.90 Unspecified osteoarthritis, unspecified site; E66.9 Obesity, unspecified; Z85.038 Personal history of other malignant neoplasm of large intestine; Z79.899 Other long term (current) drug therapy; Z98.890 Other specified postprocedural states; Z88.2 Allergy status to sulfonamides; Z88.5 Allergy status to narcotic agent; Z88.8 Allergy status to other drugs, medicaments and biological substances; Z85.46 Personal history of malignant neoplasm of prostate; Z88.1 Allergy status to other antibiotic agents; Z88.6 Allergy status to analgesic agent; Z79.84 Long term (current) use of oral hypoglycemic drugs; Z79.891 Long term (current) use of opiate analgesic; Z83.3 Family history of diabetes mellitus; Z92.3 Personal history of irradiation
CPT/HCPCS: 64635; 64636; 99152; 99153; J1100; J2250; J3010; J3490

== ENCOUNTER → 2020-06-26 | Day surgery (SDC) | payer MEDICARE, BC ==
[~2020-06-26] MED LIST changes: +ACETAMINOPHEN 500 MG TABLET PO PRN; +BALANCED SALT IRRIG SOLN NO.2 500 ML IO ONE; +BENZONATATE 100 MG CAPSULE. PO PRN; +BRIMONIDINE 0.2% OPHTH SOLUTION 5ML BOTTLE. OD ONE; -BUPIVACAINE MPF 0.25% 10 ML VIAL. IJ ONE; -BUPIVACAINE MPF 0.25% 10 ML VIAL. ONE; +CEFUROXIME OPHTH 4 MG/0.4 ML SYRINGE. OD ONE; +CHONDROIT-SOD-HYALURONATE KIT. OD ONE; -DEXAMETHASONE SOD PHOS 4 MG/ML VIAL. INT ART ONE; -DEXAMETHASONE SOD PHOS 4 MG/ML VIAL. ONE; +IBUPROFEN 200 MG TABLET PO PRN; +IPRATRPIUM/ALBUTEROL 0.5/2.5MG 3 ML NEBU. NEB PRN; +IV RINGERS SOLUTION,LACTATED 1,000 ML IV SCH; +LIDO/EPI IN BSS OPHTH 2.7 ML SYRINGE. OD ONE; -LIDOCAINE 1% PF 30 ML VIAL. INJ ONE; -LIDOCAINE 1% PF 30 ML VIAL. ONE; +LIDOCAINE 2% JELLY 6ML IN APPLICATOR. ONE; +MIDAZOLAM HCL PF 2 MG/2 ML VIAL. IV ONE; -MIDAZOLAM HCL PF 2 MG/2 ML VIAL. IVP ONE; +OMEP40CA45 PO; -OMEP40CA7 PO; +ONDANSETRON PF 4 MG/2 ML VIAL. IV PRN; +PHENYLEPHRINE 10% OPHTH SOLUTION 5ML BOTTLE. OD PRN; +POVIDONE-IODINE 5% OPHTH SOLUTION 30ML BOTTLE. OD ONE; +POVIDONE-IODINE 5% OPHTH SOLUTION 30ML BOTTLE. OD PRN; +PROPARACAINE 0.5% OPHTH SOLUTION 15ML BOTTLE. OD ONE; +PROPARACAINE 0.5% OPHTH SOLUTION 15ML BOTTLE. OD PRN; +prednisoLONE ACETATE 1% OPHTH SUSPENSION 5ML BOTTLE. OD ONE
[2020-06-26] MEDS: TROPICAMIDE 1% OPHTH SOLUTION 15ML BOTTLE. OD SCH ×3 (09:57→10:10)
[2020-06-26] MEDS: TOBRAMYCIN 0.3% OPHTH SOLUTION 5ML BOTTLE. OD SCH ×2 (09:57→10:03)
[2020-06-26] MEDS: PHENYLEPHRINE 2.5% OPHTH SOLUTION 2ML BOTTLE. OD SCH ×3 (09:57→10:10)
[2020-06-26] MEDS: KETOROLAC TROMETHAMINE 0.5% OPHTH SOLUTION BOTTLE. OD SCH ×2 (09:58→10:03)
--- NOTE | 2020-06-26 11:44 | PDOC4 ---
SURGEON: Viola Graham MD Date of Procedure: 06/26/20 PREOP Diagnosis Visually significant cataract: Right Eye OD POSTOP Diagnosis Same PROCEDURE: Phaco w/ posterior chamber IOL: Right Eye OD ANESTHESIA Deep forniceal periocular 2% Lidocaine jelly Adry/retro bulbar block with 2% Lidocaine with 0.5% Marcaine DESCRIPTION OF PROCEDURE The risks, benefits, and alternatives were discussed with the patient who elected to proceed. Informed consent was obtained in writing and placed in the chart After anesthetizing the eye topically, the patient was taken to the operating room, and the operative eye was prepped and draped in the usual sterile fashion for ocular surgery. A wire lid speculum was placed. A 1-mm clear corneal paracentesis incision was created with the side-port blade at a position three o'clock hours clockwise from the temporal cornea. Then, 1% non-preserved Lidocaine with epinephrine was injected into the anterior chamber followed by viscoelastic. Cotton-tipped applicators were used to stabilize the globe, and a 2.4 mm keratome was used to create a self-sealing incision in clear cornea at the temporal limbus. The Utrata forceps were used to create a continuous curvilinear capsulorrhexis. Balanced saline solution was injected via cannula beneath the capsulorrhexis edge to hydrodissect the lens nucleus and cortex from the lens capsule. The phacoemulsification handpiece and a chopping instrument were then used to remove the lens nucleus. The remaining epinuclear material and cortex were removed with the irrigation/aspiration handpiece. Vi scoelastic was used to re-inflate the lens capsule, and the intraocular lens was injected directly into the capsular bag. The corneal wound edges were hydrated with balanced salt solution on a cannula and the irrigation/aspiration handpiece was used to extract the remaining viscoelastic. Cefuroxime 0.1mg/ml / Vigamox 0.5% was injected into the anterior chamber intracamerally. The wounds were inspected and found to be watertight at an appropriate intraocular pressure. Topical antibiotic drops were placed on the corneal surface. LRI: No If Yes, Number [] [place] [] Length [] degrees Depth [] microns Incision [place]: 180 Toric Lens [place] [] Patch/shield with Maxitrol/Tobradex/Erythromycin ointment: Yes No Co-managed patients/postop examination stable for co-management with referring doctor. EBL EBL: None SPECIMANS COLLECTED Specimens Collected: None VIOLA GRAHAM MD June 26, 2020 11:44
[2020-06-26 12:01] VITALS: BP 180/52
== END | disposition home or self-care (01) ==
LOC: SURG 09:29
PROVIDERS: ATTEND Ophthalmology
DX: H25.11 Age-related nuclear cataract, right eye (principal); E78.00 Pure hypercholesterolemia, unspecified; M19.90 Unspecified osteoarthritis, unspecified site; K21.9 Gastro-esophageal reflux disease without esophagitis; I10 Essential (primary) hypertension; F41.9 Anxiety disorder, unspecified; F32.9 Major depressive disorder, single episode, unspecified; Z88.2 Allergy status to sulfonamides; Z88.5 Allergy status to narcotic agent; Z88.8 Allergy status to other drugs, medicaments and biological substances; Z79.899 Other long term (current) drug therapy; Z90.49 Acquired absence of other specified parts of digestive tract; Z85.46 Personal history of malignant neoplasm of prostate; Z83.3 Family history of diabetes mellitus; Z88.6 Allergy status to analgesic agent; Z85.038 Personal history of other malignant neoplasm of large intestine
CPT/HCPCS: 66984; J2250; V2632

== ENCOUNTER → 2020-07-17 | Day surgery (SDC) | payer MEDICARE, BC ==
[~2020-07-17] MED LIST changes: -BRIMONIDINE 0.2% OPHTH SOLUTION 5ML BOTTLE. OD ONE; +BRIMONIDINE 0.2% OPHTH SOLUTION 5ML BOTTLE. OS ONE; -CEFUROXIME OPHTH 4 MG/0.4 ML SYRINGE. OD ONE; +CEFUROXIME OPHTH 4 MG/0.4 ML SYRINGE. OS ONE; -CHONDROIT-SOD-HYALURONATE KIT. OD ONE; +CHONDROIT-SOD-HYALURONATE KIT. OS ONE; -LIDO/EPI IN BSS OPHTH 2.7 ML SYRINGE. OD ONE; +LIDO/EPI IN BSS OPHTH 2.7 ML SYRINGE. OS ONE; -OMEP40CA45 PO; +OMEP40CA7 PO; -PHENYLEPHRINE 10% OPHTH SOLUTION 5ML BOTTLE. OD PRN; +PHENYLEPHRINE 10% OPHTH SOLUTION 5ML BOTTLE. OS PRN; -POVIDONE-IODINE 5% OPHTH SOLUTION 30ML BOTTLE. OD ONE; -POVIDONE-IODINE 5% OPHTH SOLUTION 30ML BOTTLE. OD PRN; +POVIDONE-IODINE 5% OPHTH SOLUTION 30ML BOTTLE. ONE; +POVIDONE-IODINE 5% OPHTH SOLUTION 30ML BOTTLE. OS ONE; +POVIDONE-IODINE 5% OPHTH SOLUTION 30ML BOTTLE. OS PRN; -PROPARACAINE 0.5% OPHTH SOLUTION 15ML BOTTLE. OD ONE; -PROPARACAINE 0.5% OPHTH SOLUTION 15ML BOTTLE. OD PRN; +PROPARACAINE 0.5% OPHTH SOLUTION 15ML BOTTLE. OS ONE; +PROPARACAINE 0.5% OPHTH SOLUTION 15ML BOTTLE. OS PRN; -prednisoLONE ACETATE 1% OPHTH SUSPENSION 5ML BOTTLE. OD ONE; +prednisoLONE ACETATE 1% OPHTH SUSPENSION 5ML BOTTLE. OS ONE
[2020-07-17] MEDS: PHENYLEPHRINE 2.5% OPHTH SOLUTION 2ML BOTTLE. OS SCH ×3 (09:33→09:46)
[2020-07-17] MEDS: KETOROLAC TROMETHAMINE 0.5% OPHTH SOLUTION BOTTLE. OS SCH ×2 (09:33→09:41)
[2020-07-17] MEDS: TROPICAMIDE 1% OPHTH SOLUTION 15ML BOTTLE. OS SCH ×3 (09:33→09:46)
[2020-07-17] MEDS: TOBRAMYCIN 0.3% OPHTH SOLUTION 5ML BOTTLE. OS SCH ×2 (09:33→09:41)
[2020-07-17] MEDS: POVIDONE-IODINE 5% OPHTH SOLUTION 30ML BOTTLE. OS ONE ×2 (10:23→10:38)
--- NOTE | 2020-07-17 10:40 | PDOC4 ---
SURGEON: Viola Graham MD Date of Procedure: 07/17/20 PREOP Diagnosis Visually significant cataract: Left Eye OS POSTOP Diagnosis Same PROCEDURE: Phaco w/ posterior chamber IOL: Left Eye OS ANESTHESIA Deep forniceal periocular 2% Lidocaine jelly Adry/retro bulbar block with 2% Lidocaine with 0.5% Marcaine DESCRIPTION OF PROCEDURE The risks, benefits, and alternatives were discussed with the patient who elected to proceed. Informed consent was obtained in writing and placed in the chart After anesthetizing the eye topically, the patient was taken to the operating room, and the operative eye was prepped and draped in the usual sterile fashion for ocular surgery. A wire lid speculum was placed. A 1-mm clear corneal paracentesis incision was created with the side-port blade at a position three o'clock hours clockwise from the temporal cornea. Then, 1% non-preserved Lidocaine with epinephrine was injected into the anterior chamber followed by viscoelastic. Cotton-tipped applicators were used to stabilize the globe, and a 2.4 mm keratome was used to create a self-sealing incision in clear cornea at the temporal limbus. The Utrata forceps were used to create a continuous curvilinear capsulorrhexis. Balanced saline solution was injected via cannula beneath the capsulorrhexis edge to hydrodissect the lens nucleus and cortex from the lens capsule. The phacoemulsification handpiece and a chopping instrument were then used to remove the lens nucleus. The remaining epinuclear material and cortex were removed with the irrigation/aspiration handpiece. Vis coelastic was used to re-inflate the lens capsule, and the intraocular lens was injected directly into the capsular bag. The corneal wound edges were hydrated with balanced salt solution on a cannula and the irrigation/aspiration handpiece was used to extract the remaining viscoelastic. Cefuroxime 0.1mg/ml / Vigamox 0.5% was injected into the anterior chamber intracamerally. The wounds were inspected and found to be watertight at an appropriate intraocular pressure. Topical antibiotic drops were placed on the corneal surface. LRI: No If Yes, Number [] [place] [] Length [] degrees Depth [] microns Incision [place]: 180 Toric Lens [place] [] Patch/shield with Maxitrol/Tobradex/Erythromycin ointment: Yes No Co-managed patients/postop examination stable for co-management with referring doctor. EBL EBL: None SPECIMANS COLLECTED Specimens Collected: None VIOLA GRAHAM MD July 17, 2020 10:40
[2020-07-17 10:54] VITALS: BP 121/79
== END | disposition home or self-care (01) ==
LOC: SURG 09:13
PROVIDERS: ATTEND Ophthalmology
DX: H25.12 Age-related nuclear cataract, left eye (principal); E78.00 Pure hypercholesterolemia, unspecified; F32.9 Major depressive disorder, single episode, unspecified; E66.9 Obesity, unspecified; K21.9 Gastro-esophageal reflux disease without esophagitis; M19.90 Unspecified osteoarthritis, unspecified site; Z79.899 Other long term (current) drug therapy; Z98.890 Other specified postprocedural states; Z88.5 Allergy status to narcotic agent; Z88.2 Allergy status to sulfonamides; Z88.8 Allergy status to other drugs, medicaments and biological substances; Z85.46 Personal history of malignant neoplasm of prostate; Z85.038 Personal history of other malignant neoplasm of large intestine; Z83.3 Family history of diabetes mellitus
CPT/HCPCS: 66984; J2250; V2632

== ENCOUNTER 2020-12-26 19:41 | Emergency (ER) | payer MEDICARE, BC ==
[~2020-12-26] VITALS: Ht 172.7 cm; Wt 91.6 kg
[~2020-12-26 19:41] MED LIST changes: -ACETAMINOPHEN 500 MG TABLET PO PRN; -BALANCED SALT IRRIG SOLN NO.2 500 ML IO ONE; -BENZONATATE 100 MG CAPSULE. PO PRN; -BRIMONIDINE 0.2% OPHTH SOLUTION 5ML BOTTLE. OS ONE; -CEFUROXIME OPHTH 4 MG/0.4 ML SYRINGE. OS ONE; -CHONDROIT-SOD-HYALURONATE KIT. OS ONE; -IBUPROFEN 200 MG TABLET PO PRN; -IPRATRPIUM/ALBUTEROL 0.5/2.5MG 3 ML NEBU. NEB PRN; -IV RINGERS SOLUTION,LACTATED 1,000 ML IV SCH; -LIDO/EPI IN BSS OPHTH 2.7 ML SYRINGE. OS ONE; -LIDOCAINE 2% JELLY 6ML IN APPLICATOR. ONE; -MIDAZOLAM HCL PF 2 MG/2 ML VIAL. IV ONE; -MIDAZOLAM HCL PF 2 MG/2 ML VIAL. ONE; -ONDANSETRON PF 4 MG/2 ML VIAL. IV PRN; -PHENYLEPHRINE 10% OPHTH SOLUTION 5ML BOTTLE. OS PRN; -POVIDONE-IODINE 5% OPHTH SOLUTION 30ML BOTTLE. ONE; -POVIDONE-IODINE 5% OPHTH SOLUTION 30ML BOTTLE. OS ONE; -POVIDONE-IODINE 5% OPHTH SOLUTION 30ML BOTTLE. OS PRN; -PROPARACAINE 0.5% OPHTH SOLUTION 15ML BOTTLE. OS ONE; -PROPARACAINE 0.5% OPHTH SOLUTION 15ML BOTTLE. OS PRN; -prednisoLONE ACETATE 1% OPHTH SUSPENSION 5ML BOTTLE. OS ONE
--- NOTE | 2020-12-26 19:49 | PHYS DOC ---
Past History Past Medical History: Cancer, High Cholesterol, Hypertension, Other Past Surgical History: Cholecystectomy, Colectomy, Other Alcohol Use: None Drug Use: None General Adult EDM: Chief Complaint: NAUSEA/VOMITING/DIARRHEA HPI: HPI: ". ... I ve had diarrhea ... now for a week... my dog and I eat the same thing.. if he does not like it.. I don't fix it again... but this diarrhea seems to be only affecting me..." ".. Maryjane.. is not sick.. " ( His dog) Patient is a 85 year old male who presents with above history of diarrhea x1 week 3 times today. Has associated increased weakness which is generalized. No history of travel. No history of significant ill contacts. No history of bad food intake. No history of specific immunosuppression. Patient in past has followed with Dr. Moore no history of trauma. Does have significant past medical history of hypertension, hyperlipidemia, prostate cancer, colon cancer with resection and chemotherapy, patient normally follows with the oncology team at [facility]. Patient also on Lupron to treat his prostate cancer. Patient has had radiotherapy with 42 sessions and radiation seeds implanted. Patient gets Lupron injections every 3 months. Patient follows with Dr. Gao for oncology. Patient has had previous colectomy, cholecystectomy, tonsillectomy, laparoscopy. Patient follows with Dr. Moore for primary. Review of Systems: Review of Systems: Constitutional: Denies fever or chills Eyes: Denies change in visual acuity HENT: Denies nasal congestion or sore throat Respiratory: Denies cough or shortness of breath Cardiovascular: Denies chest pain or edema GI: Complains of mild abdominal pain, nausea,. Denies vomiting, bloody stools. Reports history of diarrhea diarrhea : Denies dysuria Musculoskeletal: Denies back pain or joint pain Integument: Denies rash Neurologic: Denies headache, focal weakness or sensory changes Endocrine: Denies polyuria or polydipsia Lymphatic: Denies swollen glands Psychiatric: Denies depression or anxiety Family History: Family History: Patient does have a family history of one of the brother who of complications of diabetes 1 older sister of motor vehicle accident, she has a younger sister is also disease but does not know the cause of . Father at age 84 mother at age 33 because of heart problems. Current Medications: Current Meds: See nursing for home meds Allergies: Allergies: Allergies Coded Allergies Type Severity Reaction Last Updated Verified Sulfa (Sulfonamide Antibiotics) Allergy Intermediate Swelling 07/17/20 Yes torsemide Allergy Intermediate swelling of the face/tongue 07/17/20 Yes morphine Allergy Unknown 07/17/20 Yes Physical Exam: PE: Constitutional: no acute distress, non-toxic appearance. [] HENT: Normocephalic, atraumatic, bilateral external ears normal, oropharynx moist, no oral exudates, nose normal. [] Eyes: PERRLA, EOMI, conjunctiva normal, no discharge. [] Neck: Normal range of motion, no tenderness, supple, no stridor. [] Cardiovascular:Heart rate regular rhythm, no murmur [] Lungs & Thorax: Bilateral breath sounds to apex with scattered wheezes on auscultation [] Abdomen: Bowel sounds hyperactive,, soft, no focal areas of tenderness, no masses, no pulsatile masses. [] No findings of acute rebound pain. Does have a cholecystectomy scar and midline cholectomy scar. Skin: Warm, dry, no erythema, no rash. [] Back: No tenderness, no CVA tenderness. [] Extremities: No tenderness, no cyanosis, no clubbing, ROM intact, bilateral ankle edema. [] No psoas sign. Neurologic: Alert and oriented X 3, normal motor function, normal sensory function, no focal deficits noted. [] Psychologic: Affect anxious. Patient declines admission. Judgement normal, mood normal. [] EKG: EKG: My interpretation EKG shows sinus rhythm at 84 bpm. No acute morphology. Time of EKG is 3 hrs. [] Radiology/Procedures: Radiology/Procedures: [address] [address] IMAGING REPORT Signed PATIENT: MARISSA REDDING ACCOUNT: [id number] : 1935 LOCATION: ER AGE: 85 SEX: M EXAM STATUS: REG ER ORD. PHYSICIAN: IVONNE PEÑALOZA MD REASON: OMNI 300,75ML IV.OMNI 240,30ML PO. N/V, ABD PAIN. HX COLON CA PROCEDURE: CT ABD PELV W/ORAL&IV CONTRAST Exam: CT of abdomen and pelvis with contrast INDICATION: Colon cancer, abdominal pain TECHNIQUE: Sequential axial images through the abdomen and pelvis obtained following the administration of 75 mL of Omni 300 IV contrast. Sagittal and coronal reformatted images were reconstructed from the axial data and reviewed. Exposure: One or more of the following in the visualized dose reduction techniques were utilized for this examination: 1. Automated exposure control 2. Adjustment of the MA and/or KV according to patient size 3. Use of iterative of reconstructive technique Comparisons: None FINDINGS: Heart size is normal. No pericardial effusion. Visualized lung bases are clear. No pleural effusion. Diffuse hepatic steatosis. Spleen, pancreas and adrenals are unremarkable. Gallbladder is absent. No perinephric inflammation or hydronephrosis. No renal or ureteral calculi are identified. There is a cystic lesion at the lower pole of the right kidney favored represent simple cysts. Bladder is partially distended with mild wall thickening. Prostate is not enlarged. Large and small bowel are unremarkable. Appendix is nonidentified. No free intra-abdominal air or fluid. No obstruction. Abdominal aorta has normal course and caliber. Abdominal vasculature is patent. No enlarged abdominal lymph nodes are identified. No suspicious osseous lesions or acute fractures. IMPRESSION: No acute process identified within the abdomen or pelvis. Electronically signed by: Forest Abarca MD (12/26/2020 10:49 PM) [facility] DICTATED AND SIGNED BY: FOREST ABARCA MD DATE: 12/26/207 CC: IVONNE PEÑALOZA MD; CHARISMA MOORE MD ~[facility] [address] [place] [address] IMAGING REPORT Signed PATIENT: MARISSA REDDING ACCOUNT: [id number] : 1935 LOCATION: ER AGE: 85 SEX: M EXAM STATUS: REG ER ORD. PHYSICIAN: IVONNE PEAÑLOZA MD REASON: pain, diarrhea, colon cancer PROCEDURE: ACUTE ABDOMEN SERIES EXAMINATION: Abdominal complete acute radiograph. VIEWS: Single view chest and 3 views of the abdomen COMPARISON: None INDICATION: 85 years, Male, abdominal pain, diarrhea, history of colon cancer. FINDINGS: Nonobstructive bowel gas pattern. No gross pneumoperitoneum.No abnormal intra- abdominal calcifications. Normal cardiomediastinal silhouette. No focal consolidation, sizable pleural effusion or pneumothorax. Calcified granuloma in the left lung base. No acute process process. Cholecystectomy clips. Brachytherapy seed implants overlie pubis symphysis, likely within the prostate. IMPRESSION: 1. Nonobstructive bowel gas pattern. 2. No acute chest findings. Electronically signed by: Claudette Vivas MD (12/26/2020 9:07 PM) [facility] DICTATED AND SIGNED BY: CLAUDETTE VIVAS MD DATE: 12/26/202104 CC: IVONNE PEÑALOZA MD; CHARISMA MOORE MD ~[facility] 0 [][place] [address] IMAGING REPORT Signed PATIENT: MARISSA REDDING ACCOUNT: [id number] : 1935 LOCATION: ER AGE: 85 SEX: M EXAM STATUS: REG ER ORD. PHYSICIAN: IVONNE PEÑALOZA MD REASON: MENTAL STATUS CHANGE PROCEDURE: CT HEAD AND CERVICAL SPINE WO Exam: CT head and cervical spine INDICATION: Mental status change TECHNIQUE: Sequential axial images through the head and cervical spine were obtained without the administration of IV contrast. Exposure: One or more of the following in the visualized dose reduction techniques were utilized for this examination: 1. Automated exposure control 2. Adjustment of the MA and/or KV according to patient size 3. Use of iterative of reconstructive technique Comparisons: None FINDINGS: Head: No focal parenchymal lesion or hemorrhage is identified. There is no midline shift or sulcal effacement. Mild patchy evidence in the periventricular white matter and particularly in the bilateral frontal regions. No acute vascular territory infarction is identified. Dumont-white distinction is preserved. The ventricular system is within normal limits without compression hydrocephalus. The basal cisterns are well maintained. The visualized portions of the paranasal sinuses and mastoid air cells are well- pneumatized. No acute fractures. Cervical spine: Vertebral body heights and alignment are well-maintained. Fracture to the cervical spine is not identified. Multilevel spondylotic change in cervical spine with degenerative disc disease greatest at C3-C4, C4-C5 and C5-C6. Mild bilateral facet arthropathy is also noted. Visualized paraspinal soft tissues are unremarkable. IMPRESSION: 1. Mild small vessel schema change, technically age indeterminate without recent prior imaging. 2. Negative CT C-spine for acute traumatic injury. Electronically signed by: Forest Abarca MD (12/26/2020 10:46 PM) [facility] DICTATED AND SIGNED BY: FOREST ABARCA MD DATE: 12/26/20 2249 CC: IVONNE PEÑALOZA MD; CHARISMA MOORE MD ~[facility] 0 Heart Score: C/O Chest Pain: No HEART Score for Chest Pain: HEART Score for Chest Pain Response (Comments) Value History Slighlty/Non-Suspicious 0 ECG Normal 0 Age > 65 2 Risk Factors 1 or 2 Risk Factors 1 Troponin < Normal Limit 0 Total 3 Risk Factors: Risk Factors: DM, Current or recent (<one month) smoker, HTN, HLP, family history of CAD, obesity. Risk Scores: Score 0 - 3: 2.5% MACE over next 6 weeks - Discharge Home Score 4 - 6: 20.3% MACE over next 6 weeks - Admit for Clinical Observation Score 7 - 10: 72.7% MACE over next 6 weeks - Early Invasive Strategies Course & Med Decision Making: Course & Med Decision Making Pertinent Labs and Imaging studies reviewed. (See chart for details) Stay on clear fluid diet x 48 hrs. No solids or milk products. Follow up ED work up with Dr. Moore. Return if any concerns. Patient take Tylenol and ibuprofen as needed for pain. Follow-up primary care. Return if any concerns. Patient to push fruit juices. Patient's potassium was supplemented 40 mg once today. And take another 40 mEq tonight. Impression; 1. Diarrhea 2. Weakness 3. Critical Hypokalemia 3.0 4. DM = Glucose 146 [] Dragon Disclaimer: Dragon Disclaimer: This electronic medical record was generated, in whole or in part, using a voice recognition dictation system. Departure Departure: Referrals: CHARISMA MOORE MD (PCP) Wilberto Disclaimer This chart was dictated in whole or in part using Voice Recognition software in a busy, high-work load, and often noisy Emergency Department environment. It may contain unintended and wholly unrecognized errors or omissions. IVONNE PEÑALOZA MD Dec 26, 2020 19:49
[2020-12-26] MEDS ORDERED: IV RINGERS SOLUTION,LACTATED 1,000 ML IV SCH (20:00)
[2020-12-26] MEDS ORDERED: KETOROLAC 30 MG/ML VIAL. IVP ONE (20:00)
[2020-12-26] MEDS ORDERED: FAMOTIDINE 20 MG/2 ML VIAL IVP ONE (20:00)
[2020-12-26] MEDS ORDERED: ONDANSETRON PF 4 MG/2 ML VIAL. IVP ONE (20:00)
[2020-12-26 20:52] LABS: BASO % 0 % (0-3); EOS % 0 % (0-3); HEMOGLOBIN 13.1 g/dL (13.0-17.5); LYMPH # 0.5 x10^3/uL (1.0-4.8); LYMPH % 6 % (24-48); MEAN CORPUSCULAR HEMOGLOBIN 30 pg (25-35); MEAN CORPUSCULAR HGB CONC 34 g/dL (31-37); MEAN CORPUSCULAR VOLUME 88 fL (79-100); MONO # 0.9 x10^3/uL (0.0-1.1); MONO % 11 % (0-9); NEUT # 6.8 x10^3uL (1.8-7.7); NEUT % 82 % (31-73); PLATELET COUNT 287 x10^3/uL (140-400); RED BLOOD COUNT 4.42 x10^6/uL (4.30-5.70); RED CELL DISTRIBUTION WIDTH 14.3 % (11.5-14.5); WHITE BLOOD COUNT 8.3 x10^3/uL (4.0-11.0)
[2020-12-26 21:10] LABS: ALBUMIN 3.2 g/dL (3.4-5.0); CALCIUM 8.7 mg/dL (8.5-10.1); CREATININE 1.1 mg/dL (0.7-1.3); DIRECT BILIRUBIN 0.3 mg/dL (0.0-0.2); GFR 63.3; TOTAL BILIRUBIN 0.8 mg/dL (0.2-1.0); TOTAL PROTEIN 6.7 g/dL (6.4-8.2)
--- NOTE | 2020-12-26 21:10 | RAD ---
EXAMINATION: Abdominal complete acute radiograph. VIEWS: Single view chest and 3 views of the abdomen COMPARISON: None INDICATION: 85 years, Male, abdominal pain, diarrhea, history of colon cancer. FINDINGS: Nonobstructive bowel gas pattern. No gross pneumoperitoneum.No abnormal intra-abdominal calcification s. Normal cardiomediastinal silhouette. No focal consolidation, sizable pleural effusion or pneumotho rax. Calcified granuloma in the left lung base. No acute process process. Cholecystectomy clips. Brac hytherapy seed implants overlie pubis symphysis, likely within the prostate. IMPRESSION: 1. Nonobstructive bowel gas pattern. 2. No acute chest findings. Electronically signed by: Ariel Vivas MD (12/26/2020 9:07 PM) NED
[2020-12-26] MEDS ORDERED: CONTRAST GIVEN. MC PRN (21:15)
--- NOTE | 2020-12-26 21:40 | EKG ---
[address] [address] Test Date: 2020-12-26 Test Time: 20:43:28 Pat Name: MARISSA REDDING Department: Room: Gender: M Personal Development Coach: : 1935 Requested By: IVONNE PEÑALOZA Order Number: [id number] Reading MD: Jp Savage Measurements Intervals Aurora Rate: 84 P: IN: QRS: 27 QRSD: 102 T: 40 QT: 378 QTc: 450 Interpretive Statements SINUS RHYTHM NORMAL ECG RI6.02 No previous ECG available for comparison Electronically Signed On 12-29-2020 9:33:07 DATA ENTRY ANALYST by Jp Savage
[2020-12-26] MEDS ORDERED: IOHEXOL 300 MG/ML 75 ML VIAL. IV ONE (22:00)
--- NOTE | 2020-12-26 22:49 | RAD ---
Exam: CT head and cervical spine INDICATION: Mental status change TECHNIQUE: Sequential axial images through the head and cervical spine were obtained without the admi nistration of IV contrast. Exposure: One or more of the following in the visualized dose reduction techniques were utilized for this examination: 1. Automated exposure control 2. Adjustment of the MA and/or KV according to patient size 3. Use of iterative of reconstructive technique Comparisons: None FINDINGS: Head: No focal parenchymal lesion or hemorrhage is identified. There is no midline shift or sulcal effaceme nt. Mild patchy evidence in the periventricular white matter and particularly in the bilateral frontal re gions. No acute vascular territory infarction is identified. Dumont-white distinction is preserved. The ventricular system is within normal limits without compression hydrocephalus. The basal cisterns are well maintained. The visualized portions of the paranasal sinuses and mastoid air cells are well-pneumatized. No acute fractures. Cervical spine: Vertebral body heights and alignment are well-maintained. Fracture to the cervical spine is not identified. Multilevel spondylotic change in cervical spine with degenerative disc disease greatest at C3-C4, C4- C5 and C5-C6. Mild bilateral facet arthropathy is also noted. Visualized paraspinal soft tissues are unremarkable. IMPRESSION: 1. Mild small vessel schema change, technically age indeterminate without recent prior imaging. 2. Negative CT C-spine for acute traumatic injury. Electronically signed by: Forest Dunham MD (12/26/2020 10:46 PM) [facility]
--- NOTE | 2020-12-26 22:52 | RAD ---
Exam: CT of abdomen and pelvis with contrast INDICATION: Colon cancer, abdominal pain TECHNIQUE: Sequential axial images through the abdomen and pelvis obtained following the administrati on of 75 mL of Omni 300 IV contrast. Sagittal and coronal reformatted images were reconstructed from the axial data and reviewed. Exposure: One or more of the following in the visualized dose reduction techniques were utilized for this examination: 1. Automated exposure control 2. Adjustment of the MA and/or KV according to patient size 3. Use of iterative of reconstructive technique Comparisons: None FINDINGS: Heart size is normal. No pericardial effusion. Visualized lung bases are clear. No pleural effusion. Diffuse hepatic steatosis. Spleen, pancreas and adrenals are unremarkable. Gallbladder is absent. No perinephric inflammation or hydronephrosis. No renal or ureteral calculi are identified. There is a cystic lesion at the lower pole of the right kidney favored represent simple cysts. Bladder is partially distended with mild wall thickening. Prostate is not enlarged. Large and small bowel are unremarkable. Appendix is nonidentified. No free intra-abdominal air or flu id. No obstruction. Abdominal aorta has normal course and caliber. Abdominal vasculature is patent. No enlarged abdominal lymph nodes are identified. No suspicious osseous lesions or acute fractures. IMPRESSION: No acute process identified within the abdomen or pelvis. Electronically signed by: Forest Dunham MD (12/26/2020 10:49 PM) [facility]
[2020-12-26] MEDS ORDERED: POTASSIUM CHLORIDE 20 MEQ TABLET.ER. PO ONE (23:00)
[2020-12-26 23:11] LABS: BACTERIA,URINE FEW /HPF (0-FEW); BILIRUBIN,URINE NEG (NEG); CLARITY,URINE CLEAR; COLOR,URINE YELLOW; GLUCOSE,URINE NEG (NEG); NITRITE,URINE NEG (NEG); RBC,URINE 0 /HPF (0-2); SQUAMOUS EPITHELIAL CELL,UR OCC /LPF; WBC,URINE OCC /HPF (0-4)
[2020-12-27 01:03] VITALS: BP 133/59
[2020-12-27] MEDS ORDERED: POTASSIUM CHLORIDE 20 MEQ TABLET.ER. PO ONE (01:30)
== END 2020-12-27 01:02 | disposition home or self-care (01) ==
LOC: ER 19:41
DX: E87.6 Hypokalemia (principal); R19.7 Diarrhea, unspecified; R53.1 Weakness; E11.8 Type 2 diabetes mellitus with unspecified complications; E78.00 Pure hypercholesterolemia, unspecified; I10 Essential (primary) hypertension; Z20.822 Contact with and (suspected) exposure to COVID-19; Z90.49 Acquired absence of other specified parts of digestive tract; Z88.2 Allergy status to sulfonamides; Z88.5 Allergy status to narcotic agent; Z88.8 Allergy status to other drugs, medicaments and biological substances
CPT/HCPCS: 70450; 72125; 74022; 74177; 80048; 80076; 81001; 82550; 83690; 84484; 85025; 85610; 85730; 87426; 93005; 96361; 96374; 96375; 99285; C9803; J1885; J2405; J3490; J7120; Q9967; U0003